=== PATIENT | female | born 1945 | race Caucasian/White ===

== ENCOUNTER → 2016-11-03 15:40 | Outpatient (CLI) | payer MEDICARE, MEDICAID ==
[2015-07-27 06:55] VITALS: BMI 17.7
[~2016-11-03 15:40] MED LIST: AMANTADINE100 M1 PO; ATIVAN0.5 MG PO; ATIVAN1 MG PO; CARAFATE1 G/10 ML PO; CARBIDOPA-LEVO1 EAC2 PO; COLACE100 MG PO; DULCOLAX5 MG PO; KLONOPIN1 MG PO; MEGACE40 MG PO; MYLANTA / MAALO30 ML PO; PROAIR HFA8.5 GM INH; PROMOLAXIN100 MG PO; PROTONIX40 MG PO; ULTRAM50 MG PO; VITAMIN B-121000 MCG PO; VITAMIN D31000 UNI2 PO
== END | disposition home or self-care (01) ==
LOC: D.CT 15:30
DX: F22 Delusional disorders (principal); R26.81 Unsteadiness on feet

== ENCOUNTER 2017-02-03 08:45 | Emergency (ER) | payer MEDICARE ==
[2015-07-27 06:55] VITALS: BMI 17.7
== END 2017-02-03 11:15 | disposition home or self-care (01) ==
LOC: D.ER 08:45
DX: S01.81XA Laceration without foreign body of other part of head, initial encounter (principal); W06.XXXA Fall from bed, initial encounter; Y93.89 Activity, other specified; Y92.023 Bedroom in mobile home as the place of occurrence of the external cause; R10.2 Pelvic and perineal pain; M79.605 Pain in left leg; M79.604 Pain in right leg; G20 Parkinson's disease; F03.90 Unspecified dementia, unspecified severity, without behavioral disturbance, psychotic disturbance, mood disturbance, and anxiety; K21.9 Gastro-esophageal reflux disease without esophagitis